=== PATIENT | female | born 1945 | race Caucasian/White ===

== ENCOUNTER 2017-12-12 20:15 | Emergency (ER) | payer OTHER ==
[~2017-12-12] VITALS: Ht 160 cm; Wt 95.7 kg
[2017-12-12 21:17] VITALS: Ht 160 cm; Wt 95.7 kg
[2017-12-12 22:04] LABS: BASOPHIL % 0.2 % (0-2); PLATELET COUNT 220 x10^3mcL (130-400); RED CELL DISTRIBUTION WIDTH 14.1 % (11.5-14.5)
[2017-12-12 22:14] LABS: CALCIUM 9.5 mg/dL (8.5-10.1); CARBON DIOXIDE 30.3 mmol/L (21-32); CHLORIDE SERUM 102 mmol/L (98-107); CREATININE SERUM 0.9 mg/dL (0.6-1.0); GLUCOSE SERUM 129 mg/dL (74-106); POTASSIUM SERUM 3.5 mmol/L (3.5-5.1); SODIUM SERUM 139 mmol/L (136-145)
[2017-12-12 22:19] LABS: ALBUMIN 3.5 g/dL (3.4-5.0); ALKALINE PHOSPHATASE 112 U/L (46-116); ALT/SGPT 25 U/L (14-59); AST/SGOT 15 U/L (15-37); BILIRUBIN TOTAL 0.3 mg/dL (0.20-1.00)
[2017-12-12] MEDS ORDERED: LOSARTAN POTASS1 TA6 PO (22:51)
[2017-12-12] MEDS ORDERED: FELODIPINE10 MG PO (22:51)
[2017-12-12] MEDS ORDERED: PLA75 PO (22:52)
[2017-12-12] MEDS ORDERED: CENTRUM SILVER1 EAC1 PO (22:52)
[2017-12-12] MEDS ORDERED: ALIGN10.5 MG (22:52)
[2017-12-12] MEDS ORDERED: CALCIUM WITH M1 EACH PO (22:52)
[2017-12-12] MEDS ORDERED: TOPROL XL25 MG PO (22:52)
[2017-12-12] MEDS ORDERED: LIPI20 PO (22:52)
[2017-12-12] MEDS ORDERED: ASPIR 8181 MG PO (22:53)
[2017-12-12] MEDS ORDERED: MASON NATURAL1000 IU PO (22:53)
[2017-12-12 23:16] VITALS: BP 126/80
== END 2017-12-12 23:16 | disposition home or self-care (01) ==
LOC: ED 20:15
PROVIDERS: Emergency Medicine
DX: N81.10 Cystocele, unspecified (principal); I10 Essential (primary) hypertension; Z86.73 Personal history of transient ischemic attack (TIA), and cerebral infarction without residual deficits
CPT/HCPCS: 36415